=== PATIENT | female | born 1935 | race Caucasian/White ===

== ENCOUNTER 2016-03-05 13:47 | Emergency (ER) | payer OTHER ==
--- NOTE | 2016-03-05 14:15 | EDPHY ---
H & P Stated Complaint: Dizzines, upset stomach, stiff neck, high B/P Time Seen by Provider: 03/05/16 14:15 Source: Patient - Personal History Current Tetanus Diphtheria and Acellular Pertussis (TDAP): Yes - Medical/Surgical History Hx Asthma: No Hx Chronic Respiratory Disease: No Hx Diabetes: No Hx Cardiac Disease: No Hx Renal Disease: No Hx Cirrhosis: No Hx Alcoholism: No Hx HIV/AIDS: No Hx Splenectomy or Spleen Trauma: No Other PMH: HTN. - Social History Smoking Status: Never smoked Constitutional: Initial Vital Signs Temperature (C) 36.4 C 03/05/16 13:51 Heart Rate 79 03/05/16 13:51 Respiratory Rate 16 03/05/16 13:51 Blood Pressure 183/73 H 03/05/16 13:51 O2 Sat (%) 95 03/05/16 13:51 O2 Delivery Mode Room Air Allergies/Adverse Reactions: STATINS" Allergy (Uncoded 06/12/14 17:38) Home Medications: Medication Instructions Recorded Aspirin EC [Aspirin EC 81 mg (OTC)] 81 mg PO HS 02/22/12 Levothyroxine [Synthroid 75 mcg 75 mcg PO DAILY06 02/22/12 (RX)] amLODIPine BESYLATE [Norvasc 5 mg 5 mg PO DAILY 02/22/12 (RX)] Cephalexin [Keflex (RX)] 500 mg PO TID #30 cap 03/05/16 Diazepam 03/05/16 Medical Decision Making ED Course/Re-evaluation: CHIEF COMPLAINT: Dizziness HISTORY OF PRESENT ILLNESS: The patient is an 81 year old female presenting with acute dizziness that started yesterday afternoon. She states she had difficulty parking her car in her garage. She states she felt like she was drunk. At onset she had ringing in her ears. The dizziness has since remained constant. Her symptoms are worse when sitting up. She additionally notes difficulty remembering some events yesterday. Since the onset of dizziness she symptoms or neck stiffness and some indigestion. REVIEW OF SYSTEMS: A 10 point review of systems was performed and is negative with the exception of the elements mentioned in the history of present illness. PHYSICAL EXAM: HR, BP, O2 Sat, RR. Temp noted General Appearance: Alert, well hydrated, appropriate, and non-toxic appearing. Head: Atraumatic without scalp tenderness or obvious injury Eyes: Pupils equal, round, reactive to light and accommodation, EOMI, no trauma , no injection. Ears: Clear bilaterally, no perforation, normal landmarks Nose: Atraumatic, no rhinorrhea, clear. Throat: There is no erythema or exudates, no lesions, normal tonsils, mucus membranes moist. Neck: Supple, 2+ carotid upstroke, nontender, no lymphadenopathy. Respiratory: No retractions, no distress, no wheezes, and no accessory muscle use. Lungs are clear to auscultation bilaterally. Cardiovascular: Regular rate and rhythm, Bilateral carotid, radial, dorsalis pedis, and posterior tibial pulses intact. Good capillary refill all extremities. 1/6 systolic ejection murmur. Gastrointestinal: Abdomen is soft, nontender, non-distended, no masses, no rebound, no guarding, no peritoneal signs. Musculoskeletal: Normal active ROM of all extremities, atraumatic. Neurological: Alert, appropriate, and interactive. The patient has normal DTRs and non-focal cranial nerves, motor, sensory, and cerebellar exam. Skin: No rashes, good turgor, no nodules on palpation. Past medical history: Hypertension, Hypothyroid Past surgical history: Denies Family history: Noncontributory Social history: Son at bedside DIAGNOSTICS/PROCEDURES/CRITICAL CARE TIME: The 12 lead EKG was interpreted by myself. See hard copy and/or "tracemaster" electronic copy for interpretation: Sinus rhythm. Study: MRI of the brain. Indication: Dizziness. Results: Unremarkable. The study was read by the radiologist, Dr. Gage. I viewed the images myself on the PACS system. DIFFERENTIAL DIAGNOSIS: The differential diagnosis for the patient's dizziness included but was not limited to peripheral and central causes of vertigo, orthostatic causes including dehydration, cardiogenic and neurogenic causes, and blood loss. MEDICAL DECISION MAKING: The patient is an 81 year old female here with new onset of dizziness that started yesterday afternoon. Yesterday she was trying to park her car in the garage and states she felt like she was drunk. Her ears were ringing and she had difficulty recalling some events. The dizziness has remained constant since onset. Plan for MRI brain to look for bleed. The patient is a healthy 81 year old female who works out regularly with the "[employer] I offered anti- vert but the patient denies. UA shows infection. I will start the patient on Keflex. MRI results are pending. MRI is unremarkable. Patient has UTI. Plan to send home with antibiotics. - Data Points Laboratory Results: 03/05/16 16:03 Urine Color PALE YELLOW Urine Appearance CLEAR Urine pH 6.0 (5.0-7.5) Ur Specific [place] 1.010 (1.002-1.030) Urine Protein NEGATIVE (NEGATIVE) Urine Ketones NEGATIVE (NEGATIVE) Urine Blood NEGATIVE (NEGATIVE) Urine Nitrate NEGATIVE (NEGATIVE) Urine Bilirubin NEGATIVE (NEGATIVE) Urine Urobilinogen NEGATIVE EU (0.2-1.0) Ur Leukocyte Esterase 2+ H (NEGATIVE) Urine RBC 1-3 /hpf (0-3) Urine WBC 15-25 H /hpf (0-3) Ur Epithelial Cells TRACE /lpf (NONE-1+) Urine Bacteria 3+ H /hpf (NONE SEEN) Urine Mucus TRACE /lpf (NONE-1+) Ur Culture Indicated? INDICATED H (NI) Urine Glucose NEGATIVE (NEGATIVE) Departure - Departure Disposition: Home, Routine, Self-Care Clinical Impression: Urinary tract infection Condition: Good Instructions: Urinary Tract Infection in Women (ED) Additional Instructions: Drink plenty of fluids. Take full course of antibiotics as prescribed. Followup with your primary care physician if symptoms persist. Referrals: Eduardo Rutledge MD [Primary Care Provider] - As per Instructions Prescriptions: Cephalexin [Keflex (RX)] 500 mg PO TID #30 cap Report Scribed for: Michael Meehan Report Scribed by: Valery Whitt Date of Report: 03/05/16 Time of Report: 14:39
--- NOTE | 2016-03-05 14:19 | CPEKG ---
Heart Rate: 68 RR Interval: 882 P-R Interval: 156 QRSD Interval: 86 QT Interval: 436 QTC Interval: 464 P Osmond: 50 QRS Osmond: 33 T Wave Osmond: 47 EKG Severity - NORMAL ECG - EKG Impression: SINUS RHYTHM Electronically Signed By: Beth Serrano 05-Mar-2016 15:19:13
[2016-03-05 16:19] LABS: COLOR PALE YELLOW; LEUKOCYTE ESTERASE,URINE 2+ (NEGATIVE); NITRITE,URINE NEGATIVE (NEGATIVE)
[2016-03-05 16:21] LABS: BACTERIA 3+ /hpf (NONE SEEN); MUCUS TRACE /lpf (NONE-1+); WBC,URINE 15-25 /hpf (0-3)
[2016-03-05 16:35] VITALS: RESP 14; TEMP 98.4; O2SAT 94
[2016-03-05] MEDS ORDERED: CEPHALEXIN 500 MG CAP PO ONE (16:38)
--- NOTE | 2016-03-05 17:10 | MR ---
MRI of the Brain (Without Contrast) History: Vertigo, right ear ringing. Technique: T1-weighted images were acquired axially and sagittally from the foramen magnum to the ve rtex. Axial fast inversion recovery, fast T2-weighted, GRE and diffusion-weighted axial images were obtained without contrast. Findings: There are multiple bilateral periventricular, deep and subcortical white matter foci of T2 weighted isovolumic hyperintensity consistent with microvascular ischemic change of in nature often s een in elderly patients vs a multifocal demyelinating processes; including multiple sclerosis and ly me disease. No posterior fossa lesions are identified. Interestingly, a dominant right posterior parietal subcortical lesion (image 29, series 5) demonstrat es focal field dropout on the gradient sequence and SWI, is hypointense on T1 and FLAIR and isointen se on T2. It does not have adjacent vasogenic edema or mass effect. It could possibly represent a sub acute or remote hemorrhage or calcification. There is a second smaller possible similar lesion seen o n the SWI sequence only, in the subcortical white matter of the right frontal lobe as well (image 25 series 5). The ventricles, cisterns, and sulci are normal and consistent with age-appropriate cerebral atrophy. There is no hydrocephalus, midline shift, herniation, or epidural/subdural hematomas. There is no lisseth dence of a primary brain neoplasm or metastatic disease. Diffusion-weighted sequence demonstrates no acute infarct. Cerebellar tonsils are in normal position. Pituitary gland is normal in size. Normal s ignal flow-void in the superior sagittal sinus, basilar artery, and bilateral internal carotid arteri es indicating patency. Paranasal sinuses and mastoid air cells are clear. The region of the cerebella r pontine angles are grossly unremarkable. Impression: 1. Microvascular ischemic change versus a multifocal demyelinating process. 2. Dominant right posterior parietal subcortical lesion and smaller right frontal subcortical lesions may be calcified or hemorrhagic. Recommend correlation with noncontrast CT. If hemorrhagic, this cou ld potentially be evidence of trauma or cerebral amyloid deposition disease. Results called to Dr. Meehan.
[2016-03-05 17:18] VITALS: BP 141/89; PULSE 80
== END 2016-03-05 17:17 | disposition home or self-care (01) ==
DX: N39.0 Urinary tract infection, site not specified (principal); I10 Essential (primary) hypertension; B96.89 Other specified bacterial agents as the cause of diseases classified elsewhere; Z79.82 Long term (current) use of aspirin

== ENCOUNTER → 2016-04-02 | Outpatient (CLI) | payer OTHER | LOC: FIMAGING 10:42 | DX: Z12.31 Encounter for screening mammogram for malignant neoplasm of breast (principal) | CPT/HCPCS: G0202 ==

== ENCOUNTER → 2016-12-04 | Outpatient (CLI) | payer OTHER | LOC: FIMAGING 09:41 | PROVIDERS: ATTEND Internal Medicine | DX: M79.604 Pain in right leg (principal) ==

== ENCOUNTER → 2016-12-19 | Outpatient (CLI) | payer OTHER | LOC: FIMAGING 10:00 | PROVIDERS: ATTEND Internal Medicine | DX: M25.851 Other specified joint disorders, right hip (principal); R60.0 Localized edema; M51.36 Other intervertebral disc degeneration, lumbar region ==

== ENCOUNTER 2018-02-11 08:00 | Inpatient (IN) | payer OTHER ==
--- NOTE | 2018-02-11 07:13 | PDHPUP ---
History & Physical Update H&P update statement: This history and physical update is based on an assessment of the patient which was completed after admission or registration (within 24 hours), but prior to the surgery/procedure. H&P update: H&P reviewed & patient examined, no change in patient's condition since H&P completed
[~2018-02-11 08:00] MED LIST: ROPIVACAINE 0.2% 80 MG, EPINEPHrine 0.2 MG, KETOROLAC TROMETHAMINE 30 MG in SYRINGE 0 ML IU ONE; TRANEXAMIC ACID 3,000 MG in NS (SYRINGE) 50 ML IRR ONE; TRANEXAMIC ACID 3,000 MG/50 ML BAG IRR ONE
[2018-02-11] MEDS ORDERED: ACETAMINOPHEN 325 MG TAB PO ONE (10:21)
[2018-02-11] MEDS ORDERED: DEXAMETHASONE 4 MG/ML VIAL IVP ONE (10:21)
[2018-02-11] MEDS ORDERED: ceFAZolin 2 GM/DEXTROSE 100 ML IV ONE (10:21)
[2018-02-11] MEDS ORDERED: FAMOTIDINE 20 MG TAB PO ONE (10:21)
[2018-02-11] MEDS ORDERED: LR 1,000 ML IV ONE (10:22)
--- NOTE | 2018-02-11 11:52 | PDANEPAE ---
ANE History of Present Illness OA here for R RUIZ ANE Past Medical History - Cardiovascular History Hx Hypertension: Yes Hx Arrhythmias: No Hx Chest Pain: No Hx Coronary Artery / Peripheral Vascular Disease: No Hx CHF / Valvular Disease: No Hx Palpitations: No Cardiovascular History Comment: pcp monitors bp medications. hyperlipidemia - Pulmonary History Hx COPD: No Hx Asthma/Reactive Airway Disease: No Hx Recent Upper Respiratory Infection: No Hx Oxygen in Use at Home: No Hx Sleep Apnea: No Sleep Apnea Screening Result - Last Documented: Negative - Neurologic History Hx Cerebrovascular Accident: No Hx Seizures: No Hx Dementia: No - Endocrine History Hx Diabetes: No Endocrine History Comment: hypothyroidism - Renal History Hx Renal Disorders: No - Liver History Hx Hepatic Disorders: No - Neurological & Psychiatric Hx Hx Neurological and Psychiatric Disorders: Yes Neurological / Psychiatric History Comment: situational some d/t passing away from cancer 4 months ago - Cancer History Hx Cancer: No - Congenital Disorder History Hx Congenital Disorders: No - GI History Hx Gastrointestinal Disorders: No - Other Health History Other Health History: wears reading glasses - Chronic Pain History Chronic Pain: Yes (right hip) - Surgical History Prior Surgeries: n/a ANE Review of Systems Review of Systems: - Exercise capacity METS (RN): 4 METS ANE Patient History - Allergies Allergies/Adverse Reactions: No Known Allergies Allergy (Verified 01/31/18 11:59) - Home Medications Home Medications: Aspirin EC [Aspirin EC 81 mg (OTC)] 81 mg PO HS 02/22/12 [Last Taken 1 Month Ago ~01/12/18] Levothyroxine [Synthroid 75 mcg (RX)] 75 mcg PO DAILY06 02/22/12 [Last Taken 07:00] amLODIPine BESYLATE [Norvasc 5 mg (RX)] 5 mg PO DAILY 02/22/12 [Last Taken 02/11 07:00] Diazepam [Valium 5 MG (*)] 10 mg PO HS PRN 03/05/16 [Last Taken 02/08/18] Calcium Carbonate [Oyster Shell Calcium 500 mg (*)] 500 mg PO DAILY 01/24/18 [ Last Taken 1 Week Ago ~02/04/18] Cyanocobalamin [Vitamin B12 (*)] 1,000 mcg PO DAILY 01/24/18 [Last Taken 1 Week Ago ~02/04/18] Ibuprofen [Motrin (*)] 200 - 400 mg PO Q8H PRN 01/24/18 [Last Taken 02/09/18] Magnesium Oxide [Magnesium Oxide 400 mg (*)] 400 mg PO DAILY 01/24/18 [Last Taken 02/08/18] Trolamine Salicylate [Aspercreme] 1 juan TP TID PRN 01/24/18 [Last Taken 2 Weeks Ago ~01/28/18] - NPO status NPO Status: no food or drink >8 hours NPO Since - Liquids (Date): 02/11/18 NPO Since - Liquids (Time): 08:00 NPO Since - Solids (Date): 02/10/18 NPO Since - Solids (Time): 18:00 - Anes Hx Anes Hx: no prior problems - Smoking Hx Smoking Status: Never smoked - Alcohol Use Alcohol Use: Rarely - Family Anes Hx Family Anes Hx: none Family Hx Anesthesia Complications: none ANE Labs/Vital Signs - Vital Signs Blood Pressure: 176/104 Heart Rate: 66 Respiratory Rate: 18 O2 Sat (%): 91 Height: 154.94 cm Weight: 70.307 kg ANE Physical Exam - Airway Neck exam: FROM Mallampati Score: Class 2 Mouth exam: normal dental/mouth exam - Pulmonary Pulmonary: no respiratory distress, clear to auscultation - Cardiovascular Cardiovascular: regular rate and rhythym, no murmur, rub, or gallop - ASA Status ASA Status: II ANE Anesthesia Plan Anesthesia Plan: GA with mask, spinal Total IV Anesthesia: Yes
[2018-02-11] MEDS ORDERED: MIDAZOLAM 2 MG/2 ML VIAL IVP ONE (11:54)
[2018-02-11] MEDS ORDERED: PROPOFOL/EMULSION 500 MG/50 ML BOTTLE IV ONE (12:14)
[2018-02-11] MEDS ORDERED: PROPOFOL 200 MG/20 ML VIAL ONE (13:19)
[2018-02-11] MEDS ORDERED: ONDANSETRON 4 MG/2 ML VIAL IVP PRN ×2 (13:25→13:39)
[2018-02-11] MEDS ORDERED: DIAZEPAM 5 MG/ML 1 ML SYR IVP PRN (13:25)
[2018-02-11] MEDS ORDERED: HYDROmorphONE/DILAUDID 2 MG/ML INJ IVP PRN (13:25)
[2018-02-11] MEDS ORDERED: HYDROCODONE/APAP 5/325 TAB PO PRN (13:25)
[2018-02-11] MEDS ORDERED: oxyCODONE IR 5 MG TAB PO PRN (13:25)
[2018-02-11] MEDS ORDERED: NALOXONE HCL 0.4 MG/ML INJ IVP PRN (13:25)
[2018-02-11] MEDS ORDERED: ACETAMINOPHEN 500 MG TAB PO PRN (13:25)
[2018-02-11] MEDS ORDERED: LACTULOSE 20 GM/30 ML UDCUP PO PRN (13:39)
[2018-02-11] MEDS ORDERED: CYCLOBENZAPRINE 10 MG TAB PO PRN (13:39)
[2018-02-11] MEDS ORDERED: PROMETHAZINE HCL 25 MG SUPPR PR PRN (13:39)
[2018-02-11] MEDS ORDERED: BISACODYL 10 MG SUPP PR PRN (13:39)
[2018-02-11] MEDS ORDERED: TEMAZEPAM 15 MG CAP PO PRN (13:39)
[2018-02-11] MEDS ORDERED: MAGNESIUM HYDROXIDE 30 ML UDCUP PO PRN (13:39)
[2018-02-11] MEDS ORDERED: DIPHENOXYLATE/ATROPINE LOMOTIL 1 TAB PO PRN (13:39)
[2018-02-11] MEDS ORDERED: METOCLOPRAMIDE 10 MG/2 ML VIAL IVP PRN (13:39)
[2018-02-11] MEDS ORDERED: ONDANSETRON DISINTEGRATING 4 MG TAB PO PRN (13:39)
[2018-02-11] MEDS ORDERED: POLYETHYLENE GLYCOL 3350 17 GM PKT PO PRN (13:39)
[2018-02-11] MEDS ORDERED: diphenhydrAMINE 25 MG CAP PO PRN (13:39)
[2018-02-11] MEDS ORDERED: PROMETHAZINE HCL 25 MG/ML INJ IVP PRN (13:39)
--- NOTE | 2018-02-11 13:39 | POSTOPPROG ---
Post Op Note Date of Operation: 02/11/18 Surgeon: Alok Hernandez [employer] Plant Repairer: Jumana Hernandez PAC Anesthesiologist: Pam Anesthesia: Spinal Pre-op Diagnosis: Right hip OA Post-op Diagnosis: same Indication: right hip pain Procedure: Right RUIZ Findings: severe right hip OA Inf/Abcess present in the surg proc area at time of surgery?: No EBL: 50-100
[2018-02-11] MEDS ORDERED: DIAZEPAM 5 MG TAB PO PRN (13:41)
--- NOTE | 2018-02-11 13:42 | POSTANESTH ---
Post Anesthetic Evaluation Cardiovascular Status: Normal, Stable, Similar to Pre-Op Cond Respiratory Status: Normal, Stable, Similar to Pre-op Cond. Level of Consciousness/Mental Status: Can Participate in Eval, Alert and Oriented Pain Control: Adequate, Prn Tx Ordered Nausea/Vomiting Control: Adequate, Prn Tx Ordered Complications Possibly Related to Anesthesia: None Noted
[2018-02-11] MEDS ORDERED: LR 1,000 ML IV SCH (14:00)
--- NOTE | 2018-02-11 14:15 | PDMN ---
Medical Necessity Medical necessity: Pt meets inpt criteria per MD order and [facility] [place] S-560, Hip Arthroplasty, Medicare inpt only surg list. 83 y/o admitted for R RUIZ/post-op care.
[2018-02-11] MEDS ORDERED: HYDROCODONE/APAP 5/325 TAB ONE (14:50)
[2018-02-11] MEDS ORDERED: fentaNYL 100 MCG/2 ML INJ ONE (14:53)
[2018-02-11] MEDS: fentaNYL 100 MCG/2 ML INJ IVP PRN ×2 (14:54→15:07)
[2018-02-11] MEDS ORDERED: HYDROmorphONE/DILAUDID 2 MG/ML INJ ONE (15:11)
[2018-02-11] MEDS: ACETAMINOPHEN 325 MG TAB PO SCH ×2 (18:40→23:27)
[2018-02-11] MEDS: oxyCODONE IR 5 MG TAB PO PRN ×2 (18:41→22:06)
[2018-02-11] MEDS: SENNOSIDES/DOCUSATE SODIUM TAB PO SCH (20:37)
[2018-02-11] MEDS: ASPIRIN 81 MG CHEWABLE TAB PO SCH (20:37)
[2018-02-11] MEDS: FAMOTIDINE 20 MG TAB PO SCH (20:37)
[2018-02-11] MEDS: ceFAZolin 2 GM/DEXTROSE 100 ML IV SCH (20:38)
--- NOTE | 2018-02-12 03:21 | GOP ---
DATE OF OPERATION: 02/11/2018 SURGEON: Eduardo Hernandez MD PAINTER TUMBLING BARREL: KATIANA Yap. ANESTHESIA: Spinal. PREOPERATIVE DIAGNOSIS: Right hip osteoarthritis. POSTOPERATIVE DIAGNOSIS: Right hip osteoarthritis. PROCEDURE PERFORMED: Right total hip arthroplasty with x-ray. FINDINGS: ESTIMATED BLOOD LOSS: 200 cc. INDICATIONS: The patient has progressively worsening arthritis of the hip which has failed medical m anagement. The patient understands the treatment options including continued non-operative care and has selected surgical intervention. The patient has decided to undergo total hip arthroplasty via th e direct anterior approach, understanding the risks of the procedure including, but not limited to, n eurovascular injury, infection, persistent pain, component wear and loosening, deep venous thrombosis , pulmonary embolism, limb length inequality, hip instability (including dislocation), and intra-oper ative fractures. DESCRIPTION OF PROCEDURE: After proper identification of the patient including verification and stephen ing the surgical site, the patient was brought to the operating room and placed in the supine positio n. All bony prominences were well padded. Anesthesia was induced without complication and intraveno us prophylactic antibiotics were administered prior to skin incision. The operative leg was placed in the Trumpf Arch table extension and the well leg in a Yellofin leg ho lder. The patient was prepped and draped in the usual sterile fashion. The C-arm was draped for int ra-operative fluoroscopy to check acetabular position, femoral component position including leg lengt h and femoral offset. Attention was then drawn to surgical exposure of the hip. An incision was made with a #10 Bard Dawes r blade starting 3 cm lateral and 3 cm distal to the anterior superior iliac spine measuring 8-10 cm and coursing distally toward the greater trochanter. The skin and subcutaneous tissues were divided sharply down to the fascia faisal. The fascia faisal was incised in line with the skin incision exposing the underlying tensor fascia faisal muscle. The muscle was bluntly elevated from the fascia and the f irst extracapsular Cobra retractor was placed laterally at the junction of the superior femoral neck and greater trochanter. The lateral femoral circumflex vessels were identified, cauterized, and divi ded with the Aquamantys bipolar cautery. The deep investing fascia of the TFL was divided to allow p hermes mobilization of the muscle preventing damage during the retraction. The reflected head of the rectus femoris muscle was elevated off the anterior hip capsule and a medial Cobra retractor was plac ed just proximal to the lesser trochanter. The anterior capsulotomy was made sharply from the superolateral acetabulum to the saddle junction of the superior femoral neck and greater trochanter, then coursing inferomedial towards the lesser troc hanter. The retractors were then placed in the intracapsular position for femoral neck osteotomy. C orresponding to pre-operative templating, the osteotomy was made with the oscillating saw carefully p rotecting the greater trochanter and soft tissues. The femoral head was removed from the acetabulum with a corkscrew and confirmed to be severely arthritic with exposed bone, deformity and osteophytes. Similar findings were confirmed in the acetabulum. The Arch table extension was then placed in 40 degrees external rotation. Attention was then drawn to the acetabular preparation. After placement of the anterior and posterio r Cobra retractors outside the labrum and intracapsular, the circumferential labrum was removed sharp ly. The foveal contents were then removed and hemostasis obtained with cautery. The first reamer selected was sized using the removed femoral head. Reaming began with medialization and then commenced in 2 mm increments at 45 degrees of abduction and 15 degrees of anteversion using fluoroscopic navigation. Reaming ceased 1 mm less than the definitive acetabular component and soha esponded to the pre-operative templating. The final acetabular component was inserted using fluorosc opy to achieve proper orientation yielding excellent purchase and stability in the acetabulum. The f inal acetabular liner was then placed and its seating confirmed. Attention was then turned to the femur. The Arch table extension was placed in extension and adducti on, delivering the osteotomized femoral neck into the wound. A 2-pronged femoral elevator was placed at the calcar and another at the tip of the greater trochanter. The posterolateral capsule was rele ased with cautery allowing mobilization of the femur lateral and anterior for preparation. The exter nal rotators were visualized and preserved. A curette and rongeur were used to open the starting poi nt for broaching. Serial broaching started with the #0 broach and ended with the broach that exhibit ed excellent fit in the proximal femur. A change in pitch during mallet strikes was accompanied by t he inability to advance the broach any further. The trial reduction was performed and fluoroscopic n avigation was utilized to check limb length. Adjustments were made to equalize limb length according ly. After the final trials were accepted they were removed and the wound was copiously lavaged. The femo ral component was seated to the same depth as the final broach and the femoral head was impacted onto the clean trunnion. The hip was then reduced for the final time and once more fluoroscopy was used to check that limb length equality was achieved. The wound was irrigated and closed in layers, the fascia faisal with 2-0 Quill, the subcutaneous tissue with 2-0 Quill, and the skin with Dermabond. Sterile dressings were applied. Final sharps and spon ge counts were accurate. The patient was then transferred to a hospital bed and brought to the [facility] room in stable condition. IMPLANTS: Accolade II size 3, 127 acetabular component, Trident II 50 mm, liner is Trident X3 32 mm, head is a Biolox Delta 32 mm +0. /[id number]/MODL
[2018-02-12] MEDS: ceFAZolin 2 GM/DEXTROSE 100 ML IV SCH (04:31)
[2018-02-12] MEDS: ACETAMINOPHEN 325 MG TAB PO SCH (05:18)
[2018-02-12] MEDS ORDERED: LEVOTHYROXINE 75 MCG TAB PO SCH (06:00)
[2018-02-12 08:33] VITALS: BP 149/54
[2018-02-12] MEDS ORDERED: amLODIPine BESYLATE 5 MG TAB PO SCH (09:00)
[2018-02-12] MEDS ORDERED: MAGNESIUM OXIDE 400 MG TAB PO SCH (09:00)
[2018-02-12] MEDS: FAMOTIDINE 20 MG TAB PO SCH (09:37)
[2018-02-12] MEDS: SENNOSIDES/DOCUSATE SODIUM TAB PO SCH (09:37)
[2018-02-12] MEDS: ASPIRIN 81 MG CHEWABLE TAB PO SCH (09:37)
--- NOTE | 2018-02-12 10:46 | SOAPPROG ---
SOAP Progress Note Assessment/Plan: Assessment: Patient is doing well POD 1 s/p R RUIZ Pain management: pain is well controlled on oral pain meds. VTE ppx: recommend aspirin daily for 3 weeks, cont JAIDA and SCDs Anemia: level is expected initially postop. Asymptomatic. Continue to monitor D/c planning:patient has done much better than anticipated. Patient is stable, BP stable, pain well controlled and patient is eager for discharge to home. May d/c to home today pending release from PT hyponatremia: Na 127 today, recommend restricting oral intake of fluids to 1L per day. rec electrolyte rich fluid and Na intake. Plan: 02/12/18 10:45 Subjective: Martita is doing well, son is present at bedside. patient would prefer to go home if possible today. denies SOB, chest pain and N/V Objective: Vital Signs Temp Pulse Resp BP Pulse Ox 36.3 C 72 14 149/54 H 96 02/12/18 08:00 02/12/18 08:00 02/12/18 08:00 02/12/18 09:36 02/12/18 08:00 Laboratory Results 02/12/18 04:35 02/12/18 04:35 02/11/18 02/12/18 02/13/18 05:59 05:59 05:59 Intake Total 2320 Output Total 550 Balance 1770 RLE: incision dressing is clean and dry, NVI, +pf/df ICD10 Worksheet Patient Problems: Problems Problem Status Onset Primary localized osteoarthritis of right hip Acute
--- NOTE | 2018-02-12 11:28 | GDS ---
ADMISSION DIAGNOSIS: Right hip osteoarthritis. DISCHARGE DIAGNOSIS: Right hip osteoarthritis. PROCEDURE: Right total hip arthroplasty. VTE PROPHYLAXIS: Recommend aspirin 81 mg twice daily for 4 weeks. BRIEF DESCRIPTION OF HOSPITAL STAY: Patient was admitted for an elective joint arthroplasty. The pa italia tolerated the procedure well and has passed physical therapy. The patient was given appropriat e antibiotic prophylaxis and venous thromboembolism prophylaxis. The patient's pain was well control led on oral pain medication, patient was holding down food, and had urinated. Decision was made to d ischarge the patient. The patient was given post-operative prescriptions pre-operatively. PLAN: Schedule to follow up in Dr. Hernandez's office February 28. /[id number]/MODL
== END 2018-02-12 11:56 | disposition home or self-care (01) | DRG 470 ==
LOC: F3N 10:03
PROVIDERS: ADMIT Orthopaedic Surgery; ATTEND Orthopaedic Surgery
PROC: 0SR904Z Replacement of Right Hip Joint with Ceramic on Polyethylene Synthetic Substitute, Open Approach (ICD-10-PCS; principal; 2018-02-11 12:00)
DX: M16.11 Unilateral primary osteoarthritis, right hip (principal); E87.1 Hypo-osmolality and hyponatremia; I10 Essential (primary) hypertension; E03.9 Hypothyroidism, unspecified; E78.5 Hyperlipidemia, unspecified
CPT/HCPCS: 97161-GP; G8978-GP-CI; G8979-GP-CI; G8980-GP-CI; J0171; J0690; J1100; J1170; J1885; J2250; J2704; J2795; J3010